=== PATIENT | female | born 1985 | race Two or more races ===

== ENCOUNTER 2017-01-11 11:23 | Emergency (ER) | payer SELFPAY ==
[2017-01-11 11:35] VITALS: BP 153/89; PULSE 98; RESP 20; TEMP 97.9; O2SAT 98
--- NOTE | 2017-01-11 11:57 | ED PDOC ---
HPI: CCC, URI, Sore Throat Time Seen by Provider: 01/11/17 11:35 Chief Complaint (Nursing): ENT Problem Chief Complaint (Provider): Bilateral ear pain History Per: Patient History/Exam Limitations: no limitations Onset/Duration Of Symptoms: Days (x 4-5) Current Symptoms Are (Timing): Still Present Location Of Pain: Ear(s) Associated Symptoms: Fever, Nasal Congestion Additional Complaint(s): Selene is a 31 y/o female who presents to the ED for evaluation of persistent and worsening bilateral ear pain for 4-5 taylor. Seen by ENT 4 days ago and started amoxicillin, mucinex D, and nasal sprays for bilateral otitis media. Patient reports that she now feels worse and is more congested. Also feels dizzy , especially with head movement, and complains of a mild headache and feeling feverish. Past Medical History Reviewed: Historical Data, Nursing Documentation, Vital Signs Vital Signs: Last Vital Signs Temp 97.9 F 01/11/17 11:31 Pulse 98 H 01/11/17 11:31 Resp 20 01/11/17 11:31 BP 153/89 H 01/11/17 11:31 Pulse Ox 98 01/11/17 12:00 - Medical History PMH: No Chronic Diseases - Family History Family History: States: Unknown Family Hx - Social History Current smoker - smoking cessation education provided: No Alcohol: Social Drugs: Denies - Immunization History Hx Tetanus Toxoid Vaccination: No Hx Influenza Vaccination: No Hx Pneumococcal Vaccination: No - Allergies Allergies/Adverse Reactions: Allergies Allergy/AdvReac Type Severity Reaction Status Date / Time No Known Allergies Allergy Verified 01/11/17 11:34 Review of Systems ROS Statement: Except As Marked, All Systems Reviewed And Found Negative Constitutional: Positive for: Fever ENT: Positive for: Ear Pain (bilateral), Nose Congestion, Other (decreased hearing) Neurological: Positive for: Headache, Dizziness Physical Exam - Reviewed Nursing Documentation Reviewed: Yes Vital Signs Reviewed: Yes - Physical Exam Appears: Positive for: No Acute Distress, Uncomfortable (Mild to moderate discomfort) Head Exam: Positive for: ATRAUMATIC, NORMAL INSPECTION, NORMOCEPHALIC Skin: Positive for: Normal Color, Warm, Dry Eye Exam: Positive for: EOMI, Normal appearance, PERRL ENT: Positive for: Pharynx Is (clear), TM Is/Are (bulging bilaterally, erythematous with fluid behind ears in both sides). Negative for: Normal ENT Inspection Neck: Positive for: Normal, Painless ROM, Supple (with no palpable lymph nodes) Neurologic/Psych: Positive for: Alert, Oriented - ECG O2 Sat by Pulse Oximetry: 98 (RA) Pulse Ox Interpretation: Normal Medical Decision Making Medical Decision Making: Time: 11:46 Initial Plan: --Paged ENT to discuss case Scribe Attestation: Documented by Floresita Perez, acting as a scribe for Gwen Davison MD Provider Scribe Attestation: All medical record entries made by the Scribe were at my direction and personally dictated by me. I have reviewed the chart and agree that the record accurately reflects my personal performance of the history, physical exam, medical decision making, and the department course for this patient. I have also personally directed, reviewed, and agree with the discharge instructions and disposition. 12.00p - case d/w Dr. Nieto who saw patient a few days ago. He will see her in his office now. Patient instructed to go there now without stopping elsewhere. Disposition - Clinical Impression Clinical Impression: Bilateral otitis media - Patient ED Disposition Is Patient to be Admitted: No Doctor Will See Patient In The: Office Counseled Patient/Family Regarding: Diagnosis, Need For Followup - Disposition Referrals: Ernie Nieto MD [Staff Provider] - Disposition: Routine/Home Disposition Time: 12:00 Condition: STABLE Additional Instructions: Go to Dr. Nieto's office now! Instructions: Otitis Media (ED) Forms: [facility] (T[place]isian) - POA Present On Arrival: None
== END 2017-01-11 13:17 | disposition home or self-care (01) ==
LOC: H.ER 11:23
DX: H66.93 Otitis media, unspecified, bilateral (principal)

== ENCOUNTER 2018-02-14 15:13 | Emergency (ER) | payer BC ==
--- NOTE | 2018-02-14 15:37 | ED PDOC ---
HPI: Female Pain Time Seen by Provider: 02/14/18 15:36 Chief Complaint (Nursing): Female Genitourinary Chief Complaint (Provider): VAGINAL BLEEDING History Per: Patient (33 Y/O FEMALE HERE APPROX 9 WEEKS GESTATION HERE WITH SPOTTING NOTED TODAY. PATIENT HAS HAD ULTRASOUND DOCUMENTING IUP. NOTES CRAMPY PAIN X 2 WEEKS ON AND OFF.) Past Medical History Reviewed: Historical Data, Nursing Documentation, Vital Signs Vital Signs: Last Vital Signs Temp 98.6 F 02/14/18 15:18 Pulse 88 02/14/18 15:18 Resp 18 02/14/18 15:18 BP 104/68 02/14/18 15:18 Pulse Ox 100 02/14/18 15:18 - Family History Family History: States: Unknown Family Hx - Immunization History Hx Tetanus Toxoid Vaccination: No Hx Influenza Vaccination: No Hx Pneumococcal Vaccination: No - Allergies Allergies/Adverse Reactions: Allergies Allergy/AdvReac Type Severity Reaction Status Date / Time No Known Allergies Allergy Verified 02/14/18 15:18 Review of Systems ROS Statement: Except As Marked, All Systems Reviewed And Found Negative Physical Exam - Reviewed Nursing Documentation Reviewed: Yes Vital Signs Reviewed: Yes - Physical Exam Appears: Positive for: Well, Non-toxic, No Acute Distress Head Exam: Positive for: ATRAUMATIC, NORMAL INSPECTION, NORMOCEPHALIC Skin: Positive for: Normal Color, Warm, DRY Eye Exam: Positive for: EOMI, Normal appearance, PERRL ENT: Positive for: Normal ENT Inspection Neck: Positive for: Normal, Painless ROM Cardiovascular/Chest: Positive for: Regular Rate, Rhythm Respiratory: Positive for: CNT, Normal Breath Sounds Gastrointestinal/Abdominal: Positive for: Normal Exam, Soft Back: Positive for: Normal Inspection Extremity: Positive for: Normal ROM Neurologic/Psych: Positive for: Alert, Oriented - Laboratory Results Result Diagrams: 02/14/18 15:49 02/14/18 15:49 - ECG O2 Sat by Pulse Oximetry: 100 Disposition - Clinical Impression Clinical Impression: Threatened miscarriage - Patient ED Disposition Is Patient to be Admitted: No - Disposition Disposition: Routine/Home Disposition Time: 17:12 Condition: FAIR Instructions: Threatened Miscarriage (DC)
[2018-02-14 16:02] LABS: ALB/GLOB RATIO 1.3 (1.0-2.1); ALBUMIN 4.7 g/dL (3.5-5.0); ALT/SGPT 26 U/L (9-52); AST/SGOT 20 U/L (14-36); BLOOD UREA NITROGEN 11 mg/dl (7-17); CALCIUM 9.5 mg/dL (8.4-10.2); GFR NON-AFRICAN AMERICAN > 60
[2018-02-14 16:05] LABS: BASO # 0.1 K/uL (0.0-0.2); BASO % 0.6 % (0.0-2.0); EOS # 0.2 K/uL (0.0-0.7); EOS % 1.8 % (0.0-4.0); HEMOGLOBIN 12.4 g/dL (12.0-16.0); LYMPH # 2.5 K/uL (1.0-4.3); LYMPH % 22.9 % (20.0-40.0); MEAN CELL VOLUME 79.5 fl (81.0-99.0); MEAN CORPUSCULAR HEMOGLOBIN 26.9 pg (27.0-31.0); MEAN CORPUSCULAR HGB CONC 33.8 g/dL (33.0-37.0); MEAN PLATELET VOLUME 8.5 fl (7.2-11.7); MONO # 0.5 K/uL (0.0-0.8); MONO % 4.5 % (0.0-10.0); NEUT # 7.6 K/uL (1.8-7.0); NEUT % 70.2 % (50.0-75.0); RBC 4.61 Mil/uL (3.80-5.20); RED CELL DISTRIBUTION WIDTH 12.8 % (11.5-14.5); WHITE BLOOD COUNT 10.8 K/uL (4.8-10.8)
[2018-02-14 16:20] LABS: INR 1.1; PROTHROMBIN TIME 12.7 Seconds (9.8-13.1)
[2018-02-14 16:23] LABS: PARTIAL THROMBOPLASTIN TIME 34.1 Seconds (25.6-37.1)
--- NOTE | 2018-02-14 17:09 | US ---
Date of service: 02/14/2018 PROCEDURE: OB Pelvic Ultrasound HISTORY: EVALUATE FOR ECTOPIC LMP: 12/18/2017, suggesting gestation 8 weeks 2 days. COMPARISON: None available. FINDINGS: UTERUS: Gestational sac: A gestational sac is identified within the endometrial cavity with yolk sac and pole identified. The amniotic membrane is partially identified. Heart rate: 160 bpm. age (Ultrasound estimated): 8 weeks 1 day based on CRL 1.7 cm. Mean sac diameter 3.1 cm. Dacia-gestational hemorrhage: No prominent hemorrhage appreciated. Subtle inhomogeneity noted at the anterior decidual reaction which is nonspecific. Date of delivery (Ultrasound estimated) : 09/25/2018. Uterus measures 11.3 x 8.4 x 7.1 cm. Concordant mild increase in size as per gestation with no suspicious myometrial lesion appreciated, anteverted. CERVIX: Measures 3.5 cm. Long and closed. No cervical abnormality seen. RIGHT OVARY: Measures 4.2 x 4.0 x 2.7 cm. No mass lesion. Normal flow. Corpus luteum cyst has developed measuring 2.7 x 2.6 x 1.8 cm. LEFT OVARY: Measures 2.8 x 2.2 x 1.6 cm. No solid mass. Normal flow. FREE FLUID: No significant fluid collection appreciated throughout. OTHER FINDINGS: No ectopic gestation identified. IMPRESSION: A single viable intrauterine gestation is identified with ultrasonic age of 8 weeks 1 day with no prominent decidual hemorrhage related. Corpus luteum cyst identified at the right ovary. No ectopic gestation demonstrated grossly. Clinical follow-up recommended.
[2018-02-14 17:34] VITALS: BP 97/59; PULSE 80; RESP 16; TEMP 98.3; O2SAT 98
== END 2018-02-14 17:32 | disposition home or self-care (01) ==
LOC: H.ER 15:13
DX: O20.0 Threatened abortion (principal); Z3A.09 9 weeks gestation of pregnancy